=== PATIENT | male | born 1965 | race Caucasian/White ===

== ENCOUNTER 2019-05-22 12:53 | Emergency (ER) | payer MEDICAID ==
[~2019-05-22] VITALS: Ht 160 cm; Wt 59.4 kg
[2019-05-22 13:17] VITALS: BP 122/89; Ht 160 cm; Wt 59.4 kg
== END 2019-05-22 14:00 | disposition left against medical advice (07) ==
LOC: ED 12:53
DX: Z53.21 Procedure and treatment not carried out due to patient leaving prior to being seen by health care provider (principal)